=== PATIENT | female | born 1940 | race Caucasian/White ===

== ENCOUNTER 2022-09-19 11:24 | Inpatient (IN) | payer MEDICARE, OTHER ==
[~2022-09-19] VITALS: Ht 170.2 cm; Wt 73.1 kg
[2022-09-19] MEDS ORDERED: CLINDAMYCIN 600MG IV 50 ML IV ONE (12:15)
[2022-09-19] MEDS ORDERED: SODIUM CHLORIDE 0.9% 1,000 ML IV ONE (12:15)
[2022-09-19] MEDS ORDERED: fentaNYL CITRATE 100 MCG/2 ML VL IV ONE (12:15)
[2022-09-19 12:39] LABS: Basophils # (auto) 0.1 10 ^3/uL (0-0.2); Basophils % (auto) 0.4 % (0.0-2.0); Eosinophils # (auto) 0 10 ^3/uL (0-0.8); Eosinophils % (auto) 0.1 % (0.0-7.0); Hematocrit 40.4 % (36.0-46.0); Hemoglobin 13.9 g/dL (12.2-16.2); Lymphocytes # (auto) 1.8 10 ^3/uL (0.4-5.4); Lymphocytes % (auto) 10.1 % (10.0-50.0); Mean Corpuscular Hemoglobin 28.9 pg (28.0-32.0); Mean Corpuscular Hgb Conc. 34.4 g/dL (32.0-36.0); Monocytes # (auto) 1.4 10 ^3/uL (0-1.3); Monocytes % (auto) 8.3 % (0.0-12.0); Neutrophils # (auto) 14.2 10 ^3/uL (1.6-8.6); Neutrophils % (auto) 81.1 % (37.0-80.0); Red Blood Cells 4.81 10^6/uL (4.0-5.20); Red Cell Distribution Width 13.1 % (11.8-14.3); White Blood Cell 17.5 10^3/uL (4.4-10.8)
[2022-09-19 12:52] VITALS: PULSE 86; RESP 13; O2SAT 94
[2022-09-19 13:00] LABS: INR 2.58 (0.9-1.15); Partial Thromboplastin Time 47.6 SEC (24.5-34.5)
[2022-09-19 13:02] LABS: Albumin 3.9 g/dL (3.4-5.0); Calcium 9.1 mg/dL (8.5-10.1); Potassium 3.3 mmol/L (3.5-5.1)
[2022-09-19 13:06] LABS: BUN/Creatinine Ratio 24.3 (10.0-20.0); Bilirubin, Total 1.1 mg/dL (0.2-1.0); Total Protein 7.9 g/dL (6.4-8.2)
[2022-09-19] MEDS ORDERED: VANCOMYCIN 1GM/250ML 250 ML IV ONE (14:15)
[2022-09-19] MEDS ORDERED: PIPERACILLIN-TAZOB 3.375GM 100 ML IV ONE (14:15)
[2022-09-19] MEDS ORDERED: HYDROmorphone HCL 2 MG/ML VL/or syr IV PRN (15:30)
[2022-09-19] MEDS ORDERED: ACETAMINOPHEN 325 MG TAB PO PRN (15:30)
[2022-09-19] MEDS ORDERED: ONDANSETRON HCL 4 MG/2 ML VIAL IV PRN (15:30)
[2022-09-19] MEDS ORDERED: HYDROcodone-ACET 5/325MG TAB PO PRN (15:30)
[2022-09-19] MEDS ORDERED: DOCUSATE SOD 100 MG CAP PO PRN (15:30)
[2022-09-19] MEDS ORDERED: methylPREDNISolone SOD SUCC 40 MG/ML VL IV SCH (15:30)
[2022-09-19] MEDS: DexAMETHasone SOD PHOS 4 MG/1ML SDV INJ IV SCH ×2 (15:35→21:05)
[2022-09-19] MEDS ORDERED: hydrALAZINE HCL 20 MG/ML VL IV PRN (15:45)
[2022-09-19] MEDS: POTASSIUM CHL 20MEQ/100ML 100 ML IV SCH ×2 (16:51→19:57)
[2022-09-19 19:08] LABS: Urine Bacteria NONE SEEN /hpf (None Seen); Urine Blood Negative /uL (Negative); Urine Specific Gravity 1.013 (1.001-1.035); Urine WBC 50 /hpf (0 - 5)
[2022-09-19 19:25] VITALS: PULSE 67; RESP 16; O2SAT 94
[2022-09-19] MEDS: hydrALAZINE HCL 20 MG/ML VL IV PRN (21:05)
[2022-09-19] MEDS: SODIUM CHLOR 0.9% PF (SALINE LOCK) 10ML VIAL/SYR IV SCH (21:40)
[2022-09-19] MEDS: PIPERACILLIN-TAZOB 3.375GM 100 ML IV SCH (23:53)
[2022-09-20] MEDS: DexAMETHasone SOD PHOS 4 MG/1ML SDV INJ IV SCH ×3 (04:09→15:21)
[2022-09-20] MEDS: SODIUM CHLOR 0.9% PF (SALINE LOCK) 10ML VIAL/SYR IV SCH ×3 (05:35→21:51)
[2022-09-20 05:53] LABS: INR 2.89 (0.9-1.15)
[2022-09-20 07:39] VITALS: PULSE 70; RESP 12; O2SAT 94
[2022-09-20] MEDS: PIPERACILLIN-TAZOB 3.375GM 100 ML IV SCH ×3 (07:56→22:42)
[2022-09-20] MEDS: LISINOPRIL 20 MG TAB PO SCH (09:18)
[2022-09-20] MEDS: METOPROLOL SUCCINATE XL 50 MG TAB PO SCH (09:18)
[2022-09-20] MEDS: hydrALAZINE HCL 20 MG/ML VL IV PRN ×2 (09:30→21:36)
[2022-09-20] MEDS: FAMOTIDINE (10MG/ML) 2ML VL IV SCH (09:30)
[2022-09-20] MEDS ORDERED: LISI20TA56 PO (09:59)
[2022-09-20] MEDS ORDERED: METO-289 PO (09:59)
[2022-09-20] MEDS ORDERED: ROPI0.5T4 PO (09:59)
[2022-09-20] MEDS ORDERED: WARF-66 PO (09:59)
[2022-09-20] MEDS ORDERED: ENOXAPARIN SOD 40 MG/0.4 ML SYRINGE SC SCH (10:00)
[2022-09-20 10:53] VITALS: BP 191/83; PULSE 84; RESP 16; TEMP 98.4; O2SAT 98
[2022-09-20 13:00] VITALS: BP 151/83; PULSE 16; TEMP 98.4; O2SAT 98
[2022-09-20] MEDS ORDERED: WARFARIN SODIUM 2 MG TAB PO ONE (17:00)
[2022-09-20] MEDS ORDERED: WARFARIN SODIUM 5 MG TAB PO ONE (17:00)
[2022-09-20] MEDS: SODIUM CHLORIDE 0.9% 1,000 ML IV SCH (18:18)
[2022-09-20 20:00] VITALS: PULSE 77; RESP 18; O2SAT 95
[2022-09-20 21:46] VITALS: BP 170/68; PULSE 87; RESP 18; TEMP 98.2; O2SAT 95
[2022-09-20] MEDS ORDERED: MELATONIN 5 MG TAB PO ONE (22:00)
[2022-09-21 04:32] VITALS: BP 105/60; PULSE 73; RESP 18; TEMP 98.4; O2SAT 94
[2022-09-21] MEDS: SODIUM CHLORIDE 0.9% 1,000 ML IV SCH ×2 (05:50→11:57)
[2022-09-21] MEDS: SODIUM CHLOR 0.9% PF (SALINE LOCK) 10ML VIAL/SYR IV SCH ×3 (06:00→23:36)
[2022-09-21] MEDS ORDERED: IOHEXOL 350 MG/ML 100ML IJ ONE (06:12)
[2022-09-21 06:15] LABS: Basophils # (auto) 0 10 ^3/uL (0-0.2); Basophils % (auto) 0.1 % (0.0-2.0); Eosinophils # (auto) 0 10 ^3/uL (0-0.8); Eosinophils % (auto) 0.1 % (0.0-7.0); Hematocrit 38.9 % (36.0-46.0); Hemoglobin 13.2 g/dL (12.2-16.2); Lymphocytes # (auto) 1.6 10 ^3/uL (0.4-5.4); Lymphocytes % (auto) 11.9 % (10.0-50.0); Mean Corpuscular Hemoglobin 29.4 pg (28.0-32.0); Mean Corpuscular Volume 86.5 fL (80.0-100.0); Monocytes # (auto) 1.1 10 ^3/uL (0-1.3); Monocytes % (auto) 8.2 % (0.0-12.0); Neutrophils # (auto) 10.9 10 ^3/uL (1.6-8.6); Neutrophils % (auto) 79.7 % (37.0-80.0); Red Cell Distribution Width 13.4 % (11.8-14.3); White Blood Cell 13.7 10^3/uL (4.4-10.8)
[2022-09-21 06:27] LABS: BUN/Creatinine Ratio 31.4 (10.0-20.0); Calcium 8.8 mg/dL (8.5-10.1); Potassium 3.7 mmol/L (3.5-5.1)
[2022-09-21] MEDS: PIPERACILLIN-TAZOB 3.375GM 100 ML IV SCH ×3 (06:45→23:29)
[2022-09-21 09:00] VITALS: BP 141/66; PULSE 67; RESP 20; TEMP 98.3; O2SAT 97
[2022-09-21] MEDS: FAMOTIDINE (10MG/ML) 2ML VL IV SCH (09:05)
[2022-09-21] MEDS: METOPROLOL SUCCINATE XL 50 MG TAB PO SCH (09:06)
[2022-09-21] MEDS: LISINOPRIL 20 MG TAB PO SCH (09:06)
[2022-09-21] MEDS ORDERED: SODIUM CHLORIDE 0.9% 1,000 ML IV SCH (09:15)
[2022-09-21 13:00] VITALS: BP 137/54; PULSE 71; RESP 20; TEMP 98.6; O2SAT 96
[2022-09-21 16:29] VITALS: BP 139/70; PULSE 71; RESP 20; TEMP 98.7; O2SAT 93
[2022-09-21 20:00] VITALS: BP 136/53; PULSE 73; RESP 16; TEMP 98; O2SAT 93
[2022-09-21 22:00] VITALS: BP 136/53; PULSE 73; RESP 16; TEMP 98; O2SAT 93
[2022-09-22] VITALS (7 sets, daily range): BP systolic 150–163; BP diastolic 64–70; PULSE 58–76; RESP 16–20; TEMP 97.8–98.6; O2SAT 93–96
[2022-09-22] MEDS: SODIUM CHLORIDE 0.9% 1,000 ML IV SCH (01:05)
[2022-09-22 06:05] LABS: INR 2.76 (0.9-1.15)
[2022-09-22 06:09] LABS: Potassium 3.4 mmol/L (3.5-5.1)
[2022-09-22 06:13] LABS: Basophils # (auto) 0 10 ^3/uL (0-0.2); Basophils % (auto) 0.4 % (0.0-2.0); Eosinophils # (auto) 0.1 10 ^3/uL (0-0.8); Eosinophils % (auto) 0.9 % (0.0-7.0); Hematocrit 37.8 % (36.0-46.0); Lymphocytes # (auto) 2.8 10 ^3/uL (0.4-5.4); Lymphocytes % (auto) 31.4 % (10.0-50.0); Mean Corpuscular Hemoglobin 29.6 pg (28.0-32.0); Mean Corpuscular Hgb Conc. 34.4 g/dL (32.0-36.0); Monocytes # (auto) 0.8 10 ^3/uL (0-1.3); Monocytes % (auto) 9.3 % (0.0-12.0); Neutrophils # (auto) 5.2 10 ^3/uL (1.6-8.6); Nucleated Red Blood Cells % 0.3 %; Red Cell Distribution Width 13.5 % (11.8-14.3)
[2022-09-22 06:19] LABS: BUN/Creatinine Ratio 35.1 (10.0-20.0); Calcium 8.1 mg/dL (8.5-10.1)
[2022-09-22] MEDS: PIPERACILLIN-TAZOB 3.375GM 100 ML IV SCH (06:32)
[2022-09-22] MEDS: SODIUM CHLOR 0.9% PF (SALINE LOCK) 10ML VIAL/SYR IV SCH ×3 (06:34→21:30)
[2022-09-22] MEDS: FAMOTIDINE (10MG/ML) 2ML VL IV SCH (09:44)
[2022-09-22] MEDS: METOPROLOL SUCCINATE XL 50 MG TAB PO SCH (09:44)
[2022-09-22] MEDS: hydrALAZINE HCL 20 MG/ML VL IV PRN (09:44)
[2022-09-22] MEDS: LISINOPRIL 20 MG TAB PO SCH (09:45)
[2022-09-22] MEDS ORDERED: POTASSIUM CHL 20 Meq TABLET PO ONE (12:00)
[2022-09-22] MEDS ORDERED: amLODIPine BESYLATE 5 MG TAB PO ONE (13:30)
[2022-09-22] MEDS: CLINDAMYCIN HCL 150 MG CAP PO SCH ×2 (13:35→21:30)
[2022-09-23] MEDS: hydrALAZINE HCL 20 MG/ML VL IV PRN (04:40)
[2022-09-23 05:00] VITALS: BP 165/70; PULSE 72; RESP 18; TEMP 98.3; O2SAT 94
[2022-09-23] MEDS: SODIUM CHLOR 0.9% PF (SALINE LOCK) 10ML VIAL/SYR IV SCH ×2 (05:08→13:32)
[2022-09-23] MEDS: CLINDAMYCIN HCL 150 MG CAP PO SCH ×2 (05:08→13:32)
[2022-09-23 06:30] VITALS: BP 156/78
[2022-09-23 06:58] LABS: Basophils # (auto) 0 10 ^3/uL (0-0.2); Basophils % (auto) 0.6 % (0.0-2.0); Eosinophils # (auto) 0.3 10 ^3/uL (0-0.8); Eosinophils % (auto) 3.8 % (0.0-7.0); Hematocrit 40.6 % (36.0-46.0); Hemoglobin 14.4 g/dL (12.2-16.2); Lymphocytes # (auto) 2.6 10 ^3/uL (0.4-5.4); Lymphocytes % (auto) 34.1 % (10.0-50.0); Mean Corpuscular Hemoglobin 29.6 pg (28.0-32.0); Mean Corpuscular Hgb Conc. 35.3 g/dL (32.0-36.0); Mean Corpuscular Volume 83.9 fL (80.0-100.0); Monocytes # (auto) 0.9 10 ^3/uL (0-1.3); Monocytes % (auto) 11.3 % (0.0-12.0); Neutrophils # (auto) 3.8 10 ^3/uL (1.6-8.6); Neutrophils % (auto) 50.2 % (37.0-80.0); Nucleated Red Blood Cells % 0.1 %; Red Blood Cells 4.84 10^6/uL (4.0-5.20); Red Cell Distribution Width 13.3 % (11.8-14.3); White Blood Cell 7.6 10^3/uL (4.4-10.8)
[2022-09-23 06:59] LABS: BUN/Creatinine Ratio 27.6 (10.0-20.0); Calcium 8.8 mg/dL (8.5-10.1); Potassium 3.3 mmol/L (3.5-5.1)
[2022-09-23 08:00] VITALS: BP 160/70; PULSE 60; PULSE 72; RESP 19; RESP 20; TEMP 98; O2SAT 96
[2022-09-23 09:00] VITALS: BP 137/81; PULSE 100; RESP 20; TEMP 98; O2SAT 97
[2022-09-23] MEDS ORDERED: amLODIPine BESYLATE 5 MG TAB PO SCH ×2 (10:00→10:15)
[2022-09-23] MEDS ORDERED: FAMOTIDINE 20 MG TAB PO SCH (10:00)
[2022-09-23] MEDS ORDERED: POTASSIUM CHL 10 Meq TABLET PO ONE (10:00)
[2022-09-23] MEDS ORDERED: levoFLOXacin 500 MG TAB PO SCH (10:00)
[2022-09-23] MEDS ORDERED: POTASSIUM CHL 20 Meq TABLET PO ONE (10:30)
[2022-09-23] MEDS ORDERED: CLIN150C18 PO (10:32)
[2022-09-23] MEDS ORDERED: LEVO500T91 PO (10:32)
[2022-09-23] MEDS: LISINOPRIL 20 MG TAB PO SCH (10:56)
[2022-09-23] MEDS: METOPROLOL SUCCINATE XL 50 MG TAB PO SCH (10:56)
[2022-09-23 12:29] VITALS: BP 137/81; PULSE 100; TEMP 36.7
[2022-09-23 13:00] VITALS: BP 146/76; PULSE 82; RESP 19; TEMP 98; O2SAT 95
[2022-09-24] MEDS ORDERED: amLODIPine BESYLATE 5 MG TAB PO SCH ×2 (10:00)
== END 2022-09-23 14:34 | disposition home or self-care (01) | DRG 872 ==
LOC: ER 11:24 → TELE 15:21 → TELE-WESTW 09-20 10:35 → WEST WING 09-22 04:05
PROVIDERS: ADMIT Internal Medicine; ATTEND Student in an Organized Health Care Education/Training Program
DX: A41.9 Sepsis, unspecified organism (principal); N39.0 Urinary tract infection, site not specified; L03.221 Cellulitis of neck; R22.1 Localized swelling, mass and lump, neck; E86.0 Dehydration; I10 Essential (primary) hypertension; E87.6 Hypokalemia; Z66 Do not resuscitate; I48.91 Unspecified atrial fibrillation; F03.90 Unspecified dementia, unspecified severity, without behavioral disturbance, psychotic disturbance, mood disturbance, and anxiety; M27.2 Inflammatory conditions of jaws; Z85.3 Personal history of malignant neoplasm of breast; Z85.89 Personal history of malignant neoplasm of other organs and systems
CPT/HCPCS: 36415; 70450; 70490; 70491; 80048; 80053; 81001; 83605; 85025; 85610; 85652; 85730; 86141; 87040; 87077; 87081; 87186; 92610; 96361; 96365; 96375; 97110; 97116; 97163; 97530; G0378; J1100; J2405; J2543; J3480; J3490